=== PATIENT | female | born 1975 | race Caucasian/White ===

== ENCOUNTER 2017-09-14 14:47 | Inpatient (IN) | payer BC, OTHER ==
[~2017-09-14] VITALS: Ht 157.5 cm; Wt 64.6 kg
[~2017-09-14 14:47] MED LIST: ATORVASTATIN CA20 MG PO; IMITREX100 MG PO; ORTHO TRI-CYCL1 EAC1 PO; TOPAMAX50 MG PO
[2017-09-14] MEDS ORDERED: ONDANSETRON HCL INJ 2 MG/ML VIAL IV STA (15:17)
[2017-09-14] MEDS ORDERED: SODIUM CHLORIDE 0.9% 1000ML 1,000 ML IV STA (15:17)
[2017-09-14] MEDS ORDERED: MORPHINE SULFATE 4 MG/ML SYR IV STA (15:17)
[2017-09-14 16:08] LABS: BILIRUBIN,URINE NEGATIVE (NEGATIVE); KETONES,URINE 1+ (NEGATIVE); LEUKOCYTE ESTERASE ,URINE 1+ (NEGATIVE); NITRITE,URINE NEGATIVE (NEGATIVE); PROTEIN,URINE DIPSTICK NEGATIVE (NEGATIVE); URINE UROBILINOGEN 0.2 mg/dL (0.2 - 1)
[2017-09-14 16:12] LABS: CLARITY,URINE SL CLOUDY (CLEAR); COLOR,URINE YELLOW (YELLOW)
--- NOTE | 2017-09-14 16:20 | Diagnostic Imaging Report ---
PROCEDURE: CT ABDOMEN AND PELVIS WITHOUT CONTRAST TECHNIQUE: The abdomen and pelvis were scanned utilizing a multidetector helical scanner from the diaphragm to the lesser trochanter after the oral administration of water. No IV contrast was administered per protocol. Coronal and sagittal multiplanar reformations were obtained. COMPARISON: None. INDICATIONS: right flank pain today, stone protocol FINDINGS: ABSENCE OF INTRAVENOUS CONTRAST DECREASES SENSITIVITY FOR DETECTION OF FOCAL LESIONS AND VASCULAR PATHOLOGY. LOWER THORAX: Unremarkable. HEPATOBILIARY: 6 mm fluid density simple cyst in hepatic segment EFRAÍN (series 3, image 28). No other focal lesions. No biliary ductal dilation. Cholecystectomy clips. SPLEEN: No splenomegaly. PANCREAS: No focal masses or ductal dilatation. ADRENALS: No adrenal nodules. KIDNEYS/URETERS: Right: 6 mm obstructing calculus in the proximal right ureter (series 3, image 79 and coronal image 45), which results in moderate right hydronephrosis, mild proximal hydroureter, and mild perinephric and periureteral stranding. Punctate, nonobstructing calculi in the mid to inferior and inferior aspects (series to 3, images 68 and 72). No renal contour abnormalities. Left: 4-5 mm nonobstructing calculus in the superior pole (series 3 per image 47). 3 mm nonobstructing calculi in the inferior pole (series 3, image 63, 66 and 68). No ureteral calculi, hydronephrosis or obstruction. No perinephric or periureteral stranding. No renal contour abnormalities. PELVIC ORGANS/BLADDER: No bladder calculi or focal lesions. Uterus is not visualized. PERITONEUM / RETROPERITONEUM: No free air or fluid. LYMPH NODES: No lymphadenopathy. VESSELS: Unremarkable. GI TRACT: No distention or wall thickening. BONES AND SOFT TISSUES: No aggressive lytic lesion. Soft tissues are grossly unremarkable. IMPRESSION: 1. 6 mm obstructing calculus in the proximal right ureter, which results in moderate right hydronephrosis, mild proximal hydroureter and mild perinephric and periureteral stranding. 2. Bilateral nonobstructing calculi, as described. No left ureteral calculi, hydronephrosis, or obstruction. Duran Noriega M.D. Dictated by: Duran Noriega M.D. on 09/14/2017 at 16:29 Electronically approved by: Duran Noriega M.D. on 09/14/2017 at 16:29
[2017-09-14 16:22] LABS: EPITHELIAL CELLS,URINE FEW /LPF
[2017-09-14 16:23] LABS: BACTERIA,URINE MODERATE /HPF
[2017-09-14 16:37] LABS: BASOPHILS % 0.2 % (0.0-1.0); HEMATOCRIT 41.8 % (34.2-44.1); HEMOGLOBIN 14.9 g/dL (12.0-16.0); LYMPHOCYTES # (AUTO) 0.7 (1.0-3.2); LYMPHOCYTES % 4.8 % (18.0-39.1); MEAN CORPUSCULAR HEMOGLOBIN 31.2 pg (28-32); MEAN CORPUSCULAR HGB CONC 35.6 g/dL (31-35); MEAN CORPUSCULAR VOLUME 87.4 fL (81-99); MONOCYTES # (AUTO) 0.4 (0.2-0.8); MONOCYTES % 2.7 % (4.4-11.3); NEUTROPHILS # (AUTO) 12.4 (2.1-6.9); NEUTROPHILS % 91.9 % (38.7-80.0); PLATELET COUNT 274 x10e3/uL (140-360); RED BLOOD COUNT 4.78 x10e6/uL (3.6-5.1); RED CELL DISTRIBUTION WIDTH 13.1 % (11.7-14.4)
[2017-09-14 16:54] LABS: ALANINE AMINOTRANSFERASE 22 IU/L (0-55); ALBUMIN 4.5 g/dL (3.5-5.0); ALKALINE PHOSPHATASE 126 IU/L (40-150); ANION GAP 13.7 mmol/L (8-16); BLOOD UREA NITROGEN 11 mg/dL (7-26); BUN/CREATININE RATIO 13 (6-25); CALCIUM 9.2 mg/dL (8.4-10.2); CARBON DIOXIDE 20 mmol/L (22-29); CHLORIDE 105 mmol/L (98-107); CREATININE, SERUM 0.88 mg/dL (0.57-1.11); EST GLOMERULAR FILTRATION RATE > 60 ML/MIN (60-); GLUCOSE 136 mg/dL (74-118); POTASSIUM 3.7 mmol/L (3.5-5.1); SODIUM 135 mmol/L (136-145)
[2017-09-14] MEDS ORDERED: MORPHINE SULFATE 2 MG/ML SYR IV STA (17:09)
[2017-09-14] MEDS ORDERED: CEFTRIAXONE SOD 1 GM VIAL IV ONE (17:20)
[2017-09-14] MEDS: ONDANSETRON HCL INJ 2 MG/ML VIAL IV PRN ×2 (18:34→23:25)
[2017-09-14 21:00] VITALS: BP 124/66
[2017-09-14] MEDS: MORPHINE SULFATE 2 MG/ML SYR IV PRN (23:25)
[2017-09-14] MEDS ORDERED: ACZONE TP (23:29)
[2017-09-14] MEDS ORDERED: ESTRADIOL2 MG PO (23:33)
[2017-09-14] MEDS ORDERED: NATURE S BOUNTY PO (23:37)
[2017-09-15] VITALS (7 sets, daily range): BP systolic 104–143; BP diastolic 55–71
[2017-09-15] MEDS ORDERED: DEXTROSE 5%/0.45% SOD CHL 1,000 ML IV ONE
[2017-09-15] MEDS ORDERED: PHILLIPS' COLO1 EACH PO
[2017-09-15] MEDS ORDERED: TAZORAC30 G2 TOP (00:07)
[2017-09-15] MEDS ORDERED: [UNRECOGNIZED DRUG - OTHER] PO (00:12)
[2017-09-15] MEDS: MORPHINE SULFATE 2 MG/ML SYR IV PRN ×2 (03:38→07:30)
[2017-09-15] MEDS: ONDANSETRON HCL INJ 2 MG/ML VIAL IV PRN ×2 (03:38→07:30)
[2017-09-15] MEDS ORDERED: BELLADONNA/OPIUM 60 MG SUPP PR ONE (09:17)
[2017-09-15] MEDS ORDERED: IOPAMIDOL 610MG/1ML 300 MG/ML VIAL IV ONE (09:17)
--- NOTE | 2017-09-15 11:01 | Consultation ---
DATE OF CONSULTATION: September 15, 2017 UROLOGY CONSULTATION REASON FOR CONSULTATION: Renal colic. HISTORY OF PRESENT ILLNESS: Estrella Sheridan is a 42-year-old woman without ever having a urological evaluation. The patient has severe right-sided flank pain, nausea and vomiting. Reported to the emergency room and was found to have obstructive ureterolithiasis. She was admitted, and urological consultation was sought. The patient denies any hematuria, but has had recurrent urinary tract infections. The patient in January 2017 underwent a large gynecological procedure. At that point in time, cystoscopy and ureteral stent placement were performed by a urogynecologist, Dr. Putnam. The patient has also had involvement of her bladder with endometriosis from the peritoneal side. She reports having stress-type urinary incontinence but denies any urge-type urinary incontinence. She has never had ureterolithiasis before. She has had an IVP performed in the middle of 2016 as part of her preoperative evaluation. PAST MEDICAL AND SURGICAL HISTORY 1. Severe endometriosis, status post total abdominal hysterectomy, bilateral salpingo-oophorectomy and appendectomy with cystoscopy and ureteral stent placement by a urogynecologist. All these procedures were done in January 2017. 2. Hypercholesterolemia. 3. Status post cholecystectomy. 4. 0, para 0. FAMILY HISTORY: Unknown due to the fact that the patient is adopted. SOCIAL HISTORY: The patient denies smoking, ethanol and drug use. The patient is a homemaker. CURRENT MEDICATIONS: Please refer to the MAR. ALLERGIES: CLONAZEPAM. REVIEW OF SYSTEMS: As discussed above in the history of present illness and past medical history, otherwise negative for all systems. PHYSICAL EXAMINATION GENERAL: Healthy-appearing, 42-year-old woman lying in bed in no apparent distress. VITAL SIGNS: She is currently afebrile, and the vital signs are currently stable. ABDOMEN: Soft and nondistended. Tender in the right flank with mild right-sided costovertebral angle tenderness. The kidneys are not palpable without hepatosplenomegaly. No obvious evidence of hernia. For the remaining physical examination systems, please refer to the admission history and physical on the chart, as well as the emergency room sheet. LABORATORY STUDIES: White blood cell count is 13,470, hemoglobin 14.9, platelets 274,000. The patient's sodium is low at 135. The patient's calcium is normal at 9.2. Urinalysis is significant for pyuria and microhematuria as well as bacteriuria. CT scan of the abdomen and pelvis shows bilateral small nephrolithiasis. There are at least 3 stones on the left and at least 2 stones on the right. The patient also has an obstructing 6-mm stone in the right proximal ureter with fairly significant right-sided hydronephrosis. Urine culture is pending. ASSESSMENT 1. Right renal colic. 2. Nausea and vomiting that are better. 3. Urinary tract infections. 4. Stress-type urinary incontinence. 5. Mild hyponatremia. 6. Leukocytosis. 7. Microhematuria. 8. Bilateral nephrolithiasis. 9. Right proximal ureterolithiasis. 10. Right hydronephrosis due to stone. PLAN 1. Due to the fact that the patient may have an infection in addition to her ureterolithiasis, we will plan on performing cystoscopy and placement of stent. I informed the patient of the risks of bleeding, infection, injury to adjacent structures, the fact that she will have a temporary stent and will need followup and removal. I also informed her that she will need at least 1 and probably 2 additional procedures in order to manage her ureterolithiasis and to render her stent-free and stone-free on the right-hand side. 2. I informed the patient that we plan to perform metabolic stone workup and follow up for stone prevention once her surgical stone management procedures are complete. 3. We will work on the patient's urinary frequency and urgency and overactive bladder symptoms that she has had for some time, once we get her stone-free. Thank you very much for involving us in the care of your patient. We will be happy to follow her along with you, as well as an outpatient. Job#: [id number] cc:STEW GATES MD
[2017-09-15] MEDS: PHENAZOPYRIDINE HCL 100 MG TAB PO SCH ×2 (13:12→17:19)
[2017-09-15] MEDS: CEFTRIAXONE SOD 1 GM VIAL IV SCH (13:12)
[2017-09-15] MEDS ORDERED: LIDOCAINE HCL 2% LOCAL INJ 5 ML SDV VIAL INJ ONE (13:49)
[2017-09-15] MEDS ORDERED: ONDANSETRON HCL INJ 2 MG/ML VIAL ONE (13:49)
[2017-09-15] MEDS ORDERED: PROPOFOL IV EMULSION 10 MG/ML 50 ML VIAL ONE (13:49)
[2017-09-15] MEDS ORDERED: DEXAMETHASONE SOD PHOS INJ 4 MG/ML VIAL ONE (13:49)
[2017-09-15] MEDS ORDERED: CEFTRIAXONE SOD 1 GM VIAL ONE (13:49)
[2017-09-15] MEDS ORDERED: SEVOFLURANE INHAL SOLN 250 ML PEN BTL ONE (13:49)
--- NOTE | 2017-09-15 14:49 | Diagnostic Imaging Report ---
PROCEDURE:X-RAY ABDOMEN - KUB COMPARISON:Abdominal CT 09/14/2017. INDICATIONS:STENT PLACEMENT FINDINGS: A right ureteral stent is in place. A 0.6 cm calcification projecting over the right renal silhouette may questionably represent the previous proximal ureteral calculus on the prior CT, although the current location would suggest retrograde movement of the stone. The stent tip appears approximately 0.5 cm medial to the calcification. This unlikely represents one of the additional non-obstructing stones noted on CT based on size. No calcifications are seen along the ureteral stent or bladder. This may also represent calcified enteric contents within a bowel loop. There is a non-obstructed bowel-gas pattern. There are no acute osseous abnormalities. The lung bases are clear. CONCLUSION: Interval placement of a right ureteral stent. Questionable retrograde movement of the previous proximal right ureteral calculus. Dictated by: Antoni Blandon M.D. on 09/15/2017 at 14:58 Electronically approved by: Antoni Blandon M.D. on 09/15/2017 at 14:58
[2017-09-15] MEDS: OXYBUTYNIN CHLORIDE 5 MG TAB PO SCH (17:19)
[2017-09-15] MEDS ORDERED: MIDAZOLAM HCL 2 MG/2 ML VIAL ONE (18:57)
[2017-09-15] MEDS ORDERED: FENTANYL CITRATE/PF 100MCG/2 ML INJ ONE (18:57)
[2017-09-15] MEDS: ACETAMINOPHEN/CODEINE 300MG - 30MG TAB PO PRN ×2 (19:09→23:48)
[2017-09-16] VITALS: BP 117/58
[2017-09-16 04:00] VITALS: BP 104/56
[2017-09-16] MEDS: ACETAMINOPHEN/CODEINE 300MG - 30MG TAB PO PRN (04:12)
[2017-09-16 06:49] LABS: BASOPHILS % 0.3 % (0.0-1.0); EOSINOPHILS % 0.3 % (0.0-6.0); HEMATOCRIT 35.4 % (34.2-44.1); HEMOGLOBIN 12.2 g/dL (12.0-16.0); LYMPHOCYTES # (AUTO) 2.7 (1.0-3.2); LYMPHOCYTES % 23.8 % (18.0-39.1); MEAN CORPUSCULAR HEMOGLOBIN 30.7 pg (28-32); MEAN CORPUSCULAR HGB CONC 34.5 g/dL (31-35); MEAN CORPUSCULAR VOLUME 89.2 fL (81-99); MONOCYTES # (AUTO) 1.5 (0.2-0.8); NEUTROPHILS # (AUTO) 7.2 (2.1-6.9); NEUTROPHILS % 62.3 % (38.7-80.0); PLATELET COUNT 204 x10e3/uL (140-360); RED BLOOD COUNT 3.97 x10e6/uL (3.6-5.1); RED CELL DISTRIBUTION WIDTH 13.3 % (11.7-14.4)
[2017-09-16 07:08] LABS: ANION GAP 11.4 mmol/L (8-16); BLOOD UREA NITROGEN 9 mg/dL (7-26); BUN/CREATININE RATIO 13 (6-25); CALCIUM 8.6 mg/dL (8.4-10.2); CARBON DIOXIDE 25 mmol/L (22-29); CHLORIDE 108 mmol/L (98-107); CREATININE, SERUM 0.71 mg/dL (0.57-1.11); EST GLOMERULAR FILTRATION RATE > 60 ML/MIN (60-); GLUCOSE 91 mg/dL (74-118); POTASSIUM 3.4 mmol/L (3.5-5.1); SODIUM 141 mmol/L (136-145)
[2017-09-16 07:34] VITALS: BP 122/69
[2017-09-16] MEDS ORDERED: PENICILLIN V POTASSIUM 250 MG TAB PO SCH (09:00)
[2017-09-16] MEDS: PHENAZOPYRIDINE HCL 100 MG TAB PO SCH ×3 (09:14→22:00)
[2017-09-16] MEDS: CEFTRIAXONE SOD 1 GM VIAL IV SCH (09:14)
[2017-09-16] MEDS: OXYBUTYNIN CHLORIDE 5 MG TAB PO SCH ×2 (09:14→15:57)
[2017-09-16] MEDS ORDERED: PENICILLIN V POTASSIUM 500 MG TAB PO SCH (09:29)
[2017-09-16] MEDS: PENICILLIN V POTASSIUM 500 MG TAB PO SCH ×3 (09:34→22:00)
[2017-09-16] MEDS ORDERED: POTASSIUM CHLORIDE 20 MEQ TAB CR PO STA (10:11)
[2017-09-16 11:28] VITALS: BP 120/56
[2017-09-16 15:22] VITALS: BP 134/70
[2017-09-16 16:00] VITALS: BP 134/70
[2017-09-17] VITALS: BP 122/70
[2017-09-17 04:00] VITALS: BP 116/80
[2017-09-17] MEDS: PHENAZOPYRIDINE HCL 100 MG TAB PO SCH ×2 (06:30→14:02)
[2017-09-17 07:10] LABS: BASOPHILS # (AUTO) 0.1 (0.0-0.1); BASOPHILS % 0.5 % (0.0-1.0); EOSINOPHILS # (AUTO) 0.1 (0.0-0.4); EOSINOPHILS % 0.8 % (0.0-6.0); HEMATOCRIT 37.3 % (34.2-44.1); HEMOGLOBIN 12.7 g/dL (12.0-16.0); LYMPHOCYTES # (AUTO) 2.2 (1.0-3.2); MEAN CORPUSCULAR HEMOGLOBIN 30.7 pg (28-32); MEAN CORPUSCULAR VOLUME 90.1 fL (81-99); MONOCYTES # (AUTO) 1.2 (0.2-0.8); MONOCYTES % 12.6 % (4.4-11.3); NEUTROPHILS # (AUTO) 5.6 (2.1-6.9); PLATELET COUNT 206 x10e3/uL (140-360); RED BLOOD COUNT 4.14 x10e6/uL (3.6-5.1); RED CELL DISTRIBUTION WIDTH 13.4 % (11.7-14.4)
[2017-09-17 07:29] LABS: ANION GAP 13.8 mmol/L (8-16); BLOOD UREA NITROGEN 9 mg/dL (7-26); BUN/CREATININE RATIO 13 (6-25); CALCIUM 8.7 mg/dL (8.4-10.2); CARBON DIOXIDE 27 mmol/L (22-29); CHLORIDE 105 mmol/L (98-107); CREATININE, SERUM 0.67 mg/dL (0.57-1.11); EST GLOMERULAR FILTRATION RATE > 60 ML/MIN (60-); GLUCOSE 99 mg/dL (74-118); POTASSIUM 3.8 mmol/L (3.5-5.1); SODIUM 142 mmol/L (136-145)
[2017-09-17 08:00] VITALS: BP 127/82
[2017-09-17] MEDS: PENICILLIN V POTASSIUM 500 MG TAB PO SCH ×2 (10:00→14:03)
[2017-09-17] MEDS: OXYBUTYNIN CHLORIDE 5 MG TAB PO SCH (10:00)
[2017-09-17] MEDS: CEFTRIAXONE SOD 1 GM VIAL IV SCH (10:00)
[2017-09-17] MEDS: ACETAMINOPHEN/CODEINE 300MG - 30MG TAB PO PRN (14:02)
[2017-09-17] MEDS ORDERED: TYLENOL WITH C1 EACH PO (14:10)
[2017-09-17] MEDS ORDERED: DITROPAN XL5 MG PO (14:11)
[2017-09-17] MEDS ORDERED: PENICILLIN V K PO (14:12)
--- NOTE | 2017-09-18 12:42 | Discharge Summary ---
DISCHARGE DIAGNOSES 1. Urolithiasis. 2. Status post cystoureteroscopy and stent placement. 3. Urinary tract infection. HOSPITAL COURSE: Ms. Sheridan is a pleasant 42-year-old lady, patient of Dr. Amy Smith, who presented to the emergency department after the sudden onset of right-sided flank pain, nausea, and vomiting. As her pain was not improving, she came to the emergency department and she was found to have a right ureteral stone. Her history is significant for severe endometriosis. She had a total hysterectomy last year, at which time she underwent stenting of ureters due to involvement of the system by endometriosis. The current CT scan showed bilateral small nephrolithiasis. There were least 3 stones on the left, 2 stones on the right, and she had an obstructing 6-mm stone in the right proximal ureter and right-sided hydronephrosis which was significant. Additionally, she has UTI with strep species. She was admitted to the hospital. Consultation was requested with Dr. Simms, urology, who proceeded with taking her to the endoscopy unit, performed a cystoureteroscopy and stent placement. Patient tolerated well and she is being discharged home in stable condition. She is to follow up with Dr. Simms in his office for later removal of the stent and she was given prescriptions for oral antibiotics and pain medication. Job#: [id number] SALMA
== END 2017-09-17 14:29 | disposition home or self-care (01) | DRG 690 ==
LOC: ER 14:47 → ERHOLD 20:11 → IMCU 20:15 → OBSVTOIN 09-16 08:21 → MED/SURG 09-16 23:07
PROVIDERS: ADMIT Internal Medicine; ATTEND Internal Medicine
PROC: 0T768DZ Dilation of Right Ureter with Intraluminal Device, Via Natural or Artificial Opening Endoscopic (ICD-10-PCS; principal; 2017-09-16)
PROC: BT1F1ZZ Fluoroscopy of Left Kidney, Ureter and Bladder using Low Osmolar Contrast (ICD-10-PCS; 2017-09-16)
PROC: BT1D1ZZ Fluoroscopy of Right Kidney, Ureter and Bladder using Low Osmolar Contrast (ICD-10-PCS; 2017-09-16)
DX: N13.6 Pyonephrosis (principal); E87.1 Hypo-osmolality and hyponatremia; N20.1 Calculus of ureter; N39.3 Stress incontinence (female) (male)
CPT/HCPCS: 36415; 74000; 74176; 74420; 80048; 80053; 81001; 83970; 84550; 85025; 87086; 96360; 96374; 99284; G0378; J0696; J1100; J2001; J2250; J2270; J2405; J7030

== ENCOUNTER 2017-09-19 12:42 | Inpatient (IN) | payer OTHER, BC ==
[~2017-09-19] VITALS: Ht 157.5 cm; Wt 66.8 kg
[~2017-09-19 12:42] MED LIST changes: +ACZONE TP; +DITROPAN XL5 MG PO; +ESTRADIOL2 MG PO; +NATURE S BOUNTY PO; +PENICILLIN V K PO; +PHILLIPS' COLO1 EACH PO; +TAZORAC30 G2 TOP; +TYLENOL WITH C1 EACH PO; +[UNRECOGNIZED DRUG - OTHER] PO
--- OUTSIDE RECORDS SUMMARY | 2017-09-19 12:46 | XMS REPORT ---
Author Author [facility] Address Unknown Phone Unavailable Care Team Providers Care Food Service Representative Name Role Phone KARMEN RODRIGUEZ Unavailable Unavailable Problems This patient has no known problems. Allergies, Adverse Reactions, Alerts This patient has no known allergies or adverse reactions. Medications This patient has no known medications. Results Test Description Test Time Test Comments Text Results Atomic Results Result Comments ABDOMEN-1VIEW (KUB) [place] [address] Patient Name: MYLES RAINES MR #: [id number] : 1975 Age/Sex: 42/F Req #: [id number] Adm Physician: KARMEN RODRIGUEZ MD Ordered by: GIGI JUAREZ MD Report #: [id number] Location: [facility] Room/Bed: [place] [address] __ Procedure: [id number] DX/ABDOMEN-1VIEW (KUB) Exam Date: Exam Time: REPORT STATUS: Signed PROCEDURE: X-RAY ABDOMEN - KUB COMPARISON: Abdominal CT 09/14/2017. INDICATIONS: STENT PLACEMENT FINDINGS: A right ureteral stent is in place. A 0.6 cm calcification projecting over the right renal silhouette may questionably represent the previous proximal ureteral calculus on the prior CT, although the current location would suggest retrograde movement of the stone. The stent tip appears approximately 0.5 cm medial to the calcification. This unlikely represents one of the additional non- obstructing stones noted on CT based on size. No calcifications are seen along the ureteral stent or bladder. This may also represent calcified enteric contents within a bowel loop. There is a non-obstructed bowel -gas pattern. There are no acute osseous abnormalities. The lung bases are clear. CONCLUSION: Interval placement of a right ureteral stent. Questionable retrograde movement of the previous proximal right ureteral calculus. Dictated by: Antoni Silver M.D. on 09/15/2017 at 14:58 Electronically approved by: Antoni Silver M.D. on 09/15/2017 at 14:58 Dictated By: ANTONI SILVER MD 57 Transcribed By: LEANNE on 09/15/171457 COPY TO: GIGI JUAREZ MD CT ABDOMEN/PELVIS WO [place] [address] Patient Name: MYLES RAINES MR #: [id number] : 1975 Age/Sex: 42/F Req #: [id number] Adm Physician: Ordered by: ANKUR WELDON COTTON BROKER Report #: [id number] Location: ER Room/Bed: Procedure: [id number] CT/CT ABDOMEN/PELVIS WO Exam Date: 09/14/17 Exam Time: 1535 REPORT STATUS: Signed PROCEDURE: CT ABDOMEN AND PELVIS WITHOUT CONTRAST TECHNIQUE: The abdomen and pelvis were scanned utilizing a multidetector helical scanner from the diaphragm to the lesser trochanter after the oral administration of water. No IV contrast was administered per protocol. Coronal and sagittal multiplanar reformations were obtained. COMPARISON: None. INDICATIONS: right flank pain today, stone protocol FINDINGS: ABSENCE OF INTRAVENOUS CONTRAST DECREASES SENSITIVITY FOR DETECTION OF FOCAL LESIONS AND VASCULAR PATHOLOGY. LOWER THORAX: Unremarkable. HEPATOBILIARY: 6 mm fluid density simple cyst in hepatic segment EFRAÍN (series 3, image 28). No other focal lesions. No biliary ductal dilation. Cholecystectomy clips. SPLEEN: No splenomegaly. PANCREAS: No focal masses or ductal dilatation. ADRENALS: No adrenal nodules. KIDNEYS/URETERS: Right: 6 mm obstructing calculus in the proximal right ureter (series 3, image 79 and coronal image 45), which results in moderate right hydronephrosis, mild proximal hydroureter, and mild perinephric and periureteral stranding. Punctate, nonobstructing calculi in the mid to inferior and inferior aspects (series to 3, images 68 and 72). No renal contour abnormalities. Left: 4-5 mm nonobstructing calculus in the superior pole (series 3 per image 47). 3 mm nonobstructing calculi in the inferior pole (series 3, image 63, 66 and 68). No ureteral calculi, hydronephrosis or obstruction. No perinephric or periureteral stranding. No renal contour abnormalities. PELVIC ORGANS/BLADDER: No bladder calculi or focal lesions. Uterus is not visualized. PERITONEUM / RETROPERITONEUM: No free air or fluid. LYMPH NODES: No lymphadenopathy. VESSELS: Unremarkable. GI TRACT: No distention or wall thickening. BONES AND SOFT TISSUES: No aggressive lytic lesion. Soft tissues are grossly unremarkable. IMPRESSION: 1. 6 mm obstructing calculus in the proximal right ureter, which results in moderate right hydronephrosis, mild proximal hydroureter and mild perinephric and periureteral stranding. 2. Bilateral nonobstructing calculi, as described. No left ureteral calculi, hydronephrosis, or obstruction. Jordan Noriega M.D. Dictated by: Jordan Noriega M.D. on 09/14/2017 at 16:29 Electronically approved by: Jordan Noriega M.D. on 09/14/2017 at 16:29 Dictated By: JORDAN NORIEGA MD Transcribed By: LEANNE on 09/14/17 COPY TO: ANKUR WELDON NP
--- OUTSIDE RECORDS SUMMARY | 2017-09-19 12:46 | XMS REPORT | Continuity of Care Document ---
Author Author [facility] Organization [facility] Address [address] [place] [address] Phone Unavailable Care Team Providers Care Draw Bench Operator Helper Name Role Phone STEW GATES PCP Insurance Providers Guarantor Jeff Raines Address [address] [place] [address] Email N Payer [facility] Policy Number [id number] Subscriber's Name ArvinJeff Relationship 01 Group Number [id number] Effective Date 17 [facility] Policy Number [id number] Subscriber's Name ArvinJeronimoharpreet Relationship 01 Group Number [id number] Group Name [employer]. Effective Date 17 Advance Directives Directive Response Recorded Date/Time Does the patient have an advance directive? Yes 09/14/17 9:30pm If yes, is advance directive on file with [facility]? No 09/14/17 9:30pm If not on file with [facility] will patient provide a copy? Yes 09/14/17 9:30pm Do you have a Directive to Physician? Yes 09/14/17 3:34pm Do you have a Medical Power of Public Relations Representative? Yes 09/14/17 3:34pm Do you have an out of hospital Do Not Resuscitate Order? No 09/14/17 3:34pm Do you have any special needs we should be aware of? No 09/14/17 3:34pm Do you have a support person here with you today? Yes 09/14/17 3:35pm Did patient receive Notice of Privacy Practices? Yes 09/14/17 3:34pm Did patient receive patient rights and responsibilities? Yes 09/14/17 3:34pm Problems Medical Problem Onset Date Status Nephroureterolithiasis Unknown Medications Current Home Medications Medication Dose Units Route Directions Days Qty Instructions Start Date Acetaminophen With Codeine (Tylenol With Codeine #3 Tablet) 1 Each Tablet 300 Mg Oral Every 4 Hours as needed for Pain 50 Tab Aczone 5 % Topical Daily Atorvastatin Calcium 20 Mg Tablet Oral Bedtime Estradiol 2 Mg Tablet Oral Daily L Gasseri/B Bifidum/B Longum (Umii Products Colon Health Capsule) 1 Each Capsule Oral Daily Nature's Bounty D3 2,000 Units Oral Daily Norgestimate-Ethinyl Estradiol (Ortho Tri-Cyclen Lo) 1 Each Tablet Oral Daily Oxybutynin Chloride (Ditropan Xl) 5 Mg Tab.er.24 5 Mg Oral Three Times A Day as needed for Over Active Bladder 270 Tab Penicillin V K 500 Mg Oral Three Times A Day 30 Sumatriptan Succinate (Imitrex) 100 Mg Tablet Oral As Needed Tazarotene (Tazorac) 30 Gm Cream..g. 0.05 % Topically Bedtime apply a pea sized amount at bedtime Topiramate (Topamax) 50 Mg Tablet Oral Twice A Day Topiramate Sprinkle 15 Mg Oral Twice A Day Social History Social History Problem Response Recorded Date/Time Onset Date Status Hx Psychiatric Problems No 09/14/2017 9:30pm Not Applicable Not Applicable Hx Eating Disorder No 09/14/2017 9:30pm Not Applicable Not Applicable Hx Substance Use Disorder No 09/14/2017 9:30pm Not Applicable Not Applicable Hx Depression No 09/14/2017 9:30pm Not Applicable Not Applicable Hx Alcohol Use No 09/14/2017 9:30pm Not Applicable Not Applicable Hx Substance Use Treatment No 09/14/2017 9:30pm Not Applicable Not Applicable Hx Physical Abuse No 09/14/2017 9:30pm Not Applicable Not Applicable Smoking Status Start Date Stop Date Never Smoker Hospital Discharge Instructions No hospital discharge instruction information available. Plan of Care Discharge Date 09/17/17 2:29pm Disposition HOME, SELF-CARE Instructions/Education Provided Back Pain Prescriptions See Medication Section Referrals GIGI JUAREZ MD (Urology) Order Date: 2 Weeks Entered Date: 09/17/2017 2:13pm Address: [facility] [place] [address] Additional Instructions/Education FOLLOW-UP WITH DR JUAREZ'S OFFICE IN FEW WEEKS FOR LITHORIPSY USE OVER THE COUNTER AZO NEEDED STRAIN ALL URINE, IF COLLECT A STONE, PLACE IN CUP SENT HOME WITH YOU AND RETURN TO DR JUAREZ'S OFFICE ACTIVITY TOLERATED DIET TOLERATED FOLLOW UP [facility] PRIMARY CARE PROVIDER IN 2 WEEKS KACY HARRIS Functional Status No functional status information available. Allergies, Adverse Reactions, Alerts Allergen Type Severity Reaction Status Last Updated Clonazepam Allergy Unknown Active 09/15/17 Immunizations No immunization information available. Vital Signs Acute Vital Signs Vital Response Date/Time Temperature (Fahrenheit) 95.8 degrees F (97.6 - 99.5) 09/17/2017 8:00am Pulse Pulse Rate (adult) 67 bpm (60 - 90) 09/17/2017 8:00am Respiratory Rate 22 bpm (12 - 24) 09/17/2017 8:00am Blood Pressure 127/82 mm Hg 09/17/2017 8:00am Height 5 ft 2 in 09/14/2017 3:05pm Weight 142.50 lb 09/16/2017 12:32am Body Mass Index 26.1 kg/m^2 09/17/2017 10:53am Results Laboratory Results Test Name Result Units Flags Reference Collection Date/Time Result Date/ Time Comments White Blood Count 9.11 x10e3/uL 4.8-10.8 09/17/2017 6:58am 09/17/2017 7 :36am Red Blood Count 4.14 x10e6/uL 3.6-5.1 09/17/2017 6:58am 09/17/2017 7: 36am Hemoglobin 12.7 g/dL 12.0-16.0 09/17/2017 6:58am 09/17/2017 7:36am Hematocrit 37.3 % 34.2-44.1 09/17/2017 6:58am 09/17/2017 7:36am Mean Corpuscular Volume 90.1 fL 81-99 09/17/2017 6:58am 09/17/2017 7: 36am Mean Corpuscular Hemoglobin 30.7 pg 28-32 09/17/2017 6:58am 09/17/2017 7:36am Mean Corpuscular Hemoglobin Concent 34.0 g/dL 31-35 09/17/2017 6:58am 09/17/2017 7:36am Red Cell Distribution Width 13.4 % 11.7-14.4 09/17/2017 6:58am 2017 7:36am Platelet Count 206 x10e3/uL 140-360 09/17/2017 6:58am 09/17/2017 7: 36am Neutrophils (%) (Auto) 61.0 % 38.7-80.0 09/17/2017 6:58am 09/17/2017 7: 36am Lymphocytes (%) (Auto) 24.0 % 18.0-39.1 09/17/2017 6:58am 09/17/2017 7: 36am Monocytes (%) (Auto) 12.6 % H 4.4-11.3 09/17/2017 6:58am 09/17/2017 7: 36am Eosinophils (%) (Auto) 0.8 % 0.0-6.0 09/17/2017 6:58am 09/17/2017 7: 36am Basophils (%) (Auto) 0.5 % 0.0-1.0 09/17/2017 6:58am 09/17/2017 7:36am IM GRANULOCYTES % 1.1 % H 0.0-1.0 09/17/2017 6:58am 09/17/2017 7:36am Neutrophils # (Auto) 5.6 2.1-6.9 09/17/2017 6:58am 09/17/2017 7:36am Lymphocytes # (Auto) 2.2 1.0-3.2 09/17/2017 6:58am 09/17/2017 7:36am Monocytes # (Auto) 1.2 H 0.2-0.8 09/17/2017 6:58am 09/17/2017 7:36am Eosinophils # (Auto) 0.1 0.0-0.4 09/17/2017 6:58am 09/17/2017 7:36am Basophils # (Auto) 0.1 0.0-0.1 09/17/2017 6:58am 09/17/2017 7:36am Absolute Immature Granulocyte (auto 0.10 x10e3/uL 0-0.1 09/17/2017 6: 58am 09/17/2017 7:36am Urine Color YELLOW YELLOW 09/14/2017 3:18pm 09/14/2017 4:12pm Urine Clarity SL CLOUDY CLEAR 09/14/2017 3:18pm 09/14/2017 4:12pm Urine Specific [place] 1.010 1.010-1.025 09/14/2017 3:18pm 2017 4:12pm Urine pH 8 H 5 - 7 09/14/2017 3:18pm 09/14/2017 4:12pm Urine Leukocyte Esterase 1+ H NEGATIVE 09/14/2017 3:18pm 09/14/2017 4: 12pm Urine Nitrite NEGATIVE NEGATIVE 09/14/2017 3:18pm 09/14/2017 4:12pm Urine Protein NEGATIVE NEGATIVE 09/14/2017 3:18pm 09/14/2017 4:12pm Urine Glucose (UA) NEGATIVE NEGATIVE 09/14/2017 3:18pm 09/14/2017 4: 12pm Urine Ketones 1+ H NEGATIVE 09/14/2017 3:18pm 09/14/2017 4:12pm Urine Urobilinogen 0.2 mg/dL 0.2 - 1 09/14/2017 3:18pm 09/14/2017 4: 12pm Urine Bilirubin NEGATIVE NEGATIVE 09/14/2017 3:18pm 09/14/2017 4: 12pm Urine Blood 3+ H NEGATIVE 09/14/2017 3:18pm 09/14/2017 4:12pm Urine WBC 6-10 /HPF H 0-5 09/14/2017 3:18pm 09/14/2017 4:23pm Urine RBC 6-10 /HPF H 0-5 09/14/2017 3:18pm 09/14/2017 4:23pm Urine Bacteria MODERATE /HPF H NONE 09/14/2017 3:18pm 09/14/2017 4:23pm Urine Epithelial Cells FEW /LPF NONE 09/14/2017 3:18pm 09/14/2017 4: 23pm Sodium Level 142 mmol/L 136-145 09/17/2017 6:58am 09/17/2017 7:30am Potassium Level 3.8 mmol/L 3.5-5.1 09/17/2017 6:58am 09/17/2017 7:30am Chloride Level 105 mmol/L 98-107 09/17/2017 6:58am 09/17/2017 7:30am Carbon Dioxide Level 27 mmol/L 22-09/17/2017 6:58am 09/17/2017 7: 30am Anion Gap 13.8 mmol/L 8-16 09/17/2017 6:58am 09/17/2017 7:30am Blood Urea Nitrogen 9 mg/dL 709/17/2017 6:58am 09/17/2017 7:30am Creatinine 0.67 mg/dL 0.57-1.11 09/17/2017 6:58am 09/17/2017 7:30am BUN/Creatinine Ratio 13 609/17/2017 6:58am 09/17/2017 7:30am Estimat Glomerular Filtration Rate > 60 ML/MIN 6009/17/2017 6:58am 7:30am Ranges were taken from the National Kidney Disease Education Program and the National Kid[employer] Foundation literature. Reference ranges: 60 or greater: Normal 16-59 (for 3 consecutive months): Chronic kidney disease 15 or less: Kidney failure Glucose Level 99 mg/dL 74-118 09/17/2017 6:58am 09/17/2017 7:30am Calcium Level 8.7 mg/dL 8.4-10.2 09/17/2017 6:58am 09/17/2017 7:30am Uric Acid 2.6 mg/dL 2.6-8.0 09/16/2017 6:25am 09/16/2017 7:08am Total Bilirubin 0.4 mg/dL 0.2-1.2 09/14/2017 4:00pm 09/14/2017 4:55pm Aspartate Amino Transf (AST/SGOT) 21 IU/L 5-34 09/14/2017 4:00pm 2017 4:55pm Alanine Aminotransferase (ALT/SGPT) 22 IU/L 0-55 09/14/2017 4:00pm 4:55pm Total Protein 8.8 g/dL H 6.5-8.1 09/14/2017 4:00pm 09/14/2017 4:55pm Albumin 4.5 g/dL 3.5-5.0 09/14/2017 4:00pm 09/14/2017 4:55pm Globulin 4.3 g/dL H 2.3-3.5 09/14/2017 4:00pm 09/14/2017 4:55pm Albumin/Globulin Ratio 1.0 0.8-2.0 09/14/2017 4:00pm 09/14/2017 4: 55pm Alkaline Phosphatase 126 IU/L 40-150 09/14/2017 4:00pm 09/14/2017 4: 55pm Parathyroid Hormone 26 pg/mL 15-65 09/16/2017 6:28am 09/17/2017 5:45am Calcium (Send out) 8.6 mg/dL L 8.7-10.2 09/16/2017 6:28am 09/17/2017 5: 45am Parathyroid Hormone Interpretation Comment . 09/16/2017 6:28am 2017 5:45am Interpretation Intact PTH Calcium (pg/mL) (mg/dL) Normal 15 - 65 8.6 - 10.2 Primary Hyperparathyroidism >65 >10.2 Secondary Hyperparathyroidism >65 <10.2 Non-Parathyroid Hypercalcemia <65 >10.2 Hypoparathyroidism <15 < 8.6 Non-Parathyroid Hypocalcemia 15 - 65 < 8.6 Performed at: - [facility] [id number] Laboratory Veterinarian: Dereje Harvey MD, Phone: [phone] Performed at: - [facility] [id number] Laboratory Veterinarian: Tex Treviño MD, Phone: [phone] Microbiology Results Procedure Source Organism/Result Collection Date/Time Result Date/Time Result Status Urine Culture Urine,Clean Catch STREPTOCOCCUS VIRIDANS 09/14/2017 3:18pm 09/16/2017 6:47am Final Procedures Procedure Status Date Provider(s) Cystoscopy with retrograde pyelography Completed 09/15/[address] of abdomen and pelvis without contrast Active 09/14/17 ANKUR WELDON [employer] VEHICLE SERVICE ATTENDANT Encounters Encounter Location Arrival/Admit Date Discharge/Depart Date Attending Provider Discharged Inpatient [facility] 09/16/17 8:21am 09/17/17 2:29pm KARMEN RODRIGUEZ MD
[2017-09-19] MEDS ORDERED: SODIUM CHLORIDE 0.9% 1000ML 1,000 ML IV STA (12:47)
[2017-09-19] MEDS ORDERED: ONDANSETRON HCL INJ 2 MG/ML VIAL IV STA (12:47)
[2017-09-19] MEDS ORDERED: MORPHINE SULFATE 4 MG/ML SYR IV STA (12:47)
[2017-09-19] MEDS ORDERED: MORPHINE SULFATE 2 MG/ML SYR ONE (13:18)
[2017-09-19 13:37] LABS: BASOPHILS # (AUTO) 0.1 (0.0-0.1); BASOPHILS % 0.8 % (0.0-1.0); EOSINOPHILS # (AUTO) 0.2 (0.0-0.4); EOSINOPHILS % 2.3 % (0.0-6.0); HEMATOCRIT 38.2 % (34.2-44.1); HEMOGLOBIN 13.3 g/dL (12.0-16.0); MEAN CORPUSCULAR HEMOGLOBIN 30.9 pg (28-32); MEAN CORPUSCULAR HGB CONC 34.8 g/dL (31-35); MEAN CORPUSCULAR VOLUME 88.8 fL (81-99); MONOCYTES # (AUTO) 0.9 (0.2-0.8); MONOCYTES % 12.3 % (4.4-11.3); NEUTROPHILS # (AUTO) 4.2 (2.1-6.9); NEUTROPHILS % 57.3 % (38.7-80.0); PLATELET COUNT 236 x10e3/uL (140-360)
[2017-09-19 13:51] LABS: ALANINE AMINOTRANSFERASE 12 IU/L (0-55); ALBUMIN 3.6 g/dL (3.5-5.0); ALKALINE PHOSPHATASE 93 IU/L (40-150); ANION GAP 13.3 mmol/L (8-16); BLOOD UREA NITROGEN 9 mg/dL (7-26); BUN/CREATININE RATIO 13 (6-25); CALCIUM 8.8 mg/dL (8.4-10.2); CARBON DIOXIDE 25 mmol/L (22-29); CHLORIDE 102 mmol/L (98-107); CREATININE, SERUM 0.71 mg/dL (0.57-1.11); EST GLOMERULAR FILTRATION RATE > 60 ML/MIN (60-); GLUCOSE 151 mg/dL (74-118); POTASSIUM 3.3 mmol/L (3.5-5.1); SODIUM 137 mmol/L (136-145)
--- NOTE | 2017-09-19 14:02 | Diagnostic Imaging Report ---
EXAM: Abdomen, one view INDICATION: Pain. COMPARISON: Abdomen, one view, 09/15/2017. CT abdomen and pelvis 09/14/2017 FINDINGS: LINES: None. Bowel: No air fluid levels.. No pneumoperitoneum.. Moderate amount of retained feces and air are noted in the colon and rectum. Right ureteral stent is present. 5.1 mm calculus projects over the proximal right ureter, between the right transverse processes of L2 and L3. 3.1 mm calculus projects over the left kidney. No calcifications project over the right renal shadow, expected course of the left ureter, and bladder. Soft tissues: Cholecystectomy clips. Bones: No acute osseous abnormality. Impression: Left nephrolithiasis. Proximal right ureteral calculus. Right ureteral stent. Signed by: Dr. Eliceo Latham M.D. on 09/19/2017 1:59 PM
[2017-09-19 14:29] LABS: BILIRUBIN,URINE 1+ (NEGATIVE); CLARITY,URINE CLEAR (CLEAR); COLOR,URINE YELLOW (YELLOW); KETONES,URINE NEGATIVE (NEGATIVE); LEUKOCYTE ESTERASE ,URINE 1+ (NEGATIVE); URINE UROBILINOGEN 1 mg/dL (0.2 - 1)
[2017-09-19 14:34] LABS: NITRITE,URINE POSITIVE (NEGATIVE); PROTEIN,URINE DIPSTICK TRACE (NEGATIVE)
[2017-09-19 14:43] LABS: EPITHELIAL CELLS,URINE FEW /LPF; RBC,URINE 21-50 /HPF (0-5); WBC,URINE (MAN) 0-5 /HPF (0-5)
[2017-09-19] MEDS ORDERED: ONDANSETRON HCL INJ 2 MG/ML VIAL IV PRN (15:00)
[2017-09-19] MEDS ORDERED: LEVOFLOXACIN 500MG/D5W 100ML IV SCH (15:00)
[2017-09-19] MEDS ORDERED: LEVOFLOXACIN 500MG/D5W 100ML 100 ML IV SCH (16:00)
[2017-09-19] MEDS: SODIUM CHLORIDE 0.9% 1000ML 1,000 ML IV SCH (16:26)
[2017-09-19 16:35] VITALS: BP 139/69
[2017-09-19 17:23] VITALS: BP 139/69
[2017-09-19 20:00] VITALS: BP 102/57
[2017-09-19] MEDS: HYDROMORPHONE 2MG/ML INJ IV PRN (21:08)
[2017-09-20] VITALS (8 sets, daily range): BP systolic 102–117; BP diastolic 53–80
[2017-09-20] MEDS: SODIUM CHLORIDE 0.9% 1000ML 1,000 ML IV SCH ×4 (00:04→23:53)
[2017-09-20 07:08] LABS: BASOPHILS # (AUTO) 0.1 (0.0-0.1); BASOPHILS % 0.7 % (0.0-1.0); EOSINOPHILS # (AUTO) 0.3 (0.0-0.4); EOSINOPHILS % 3.9 % (0.0-6.0); HEMATOCRIT 34.4 % (34.2-44.1); HEMOGLOBIN 11.8 g/dL (12.0-16.0); LYMPHOCYTES # (AUTO) 2.6 (1.0-3.2); LYMPHOCYTES % 35.4 % (18.0-39.1); MEAN CORPUSCULAR HEMOGLOBIN 31.5 pg (28-32); MEAN CORPUSCULAR HGB CONC 34.3 g/dL (31-35); MEAN CORPUSCULAR VOLUME 91.7 fL (81-99); MONOCYTES # (AUTO) 1.1 (0.2-0.8); MONOCYTES % 14.8 % (4.4-11.3); NEUTROPHILS # (AUTO) 3.3 (2.1-6.9); NEUTROPHILS % 45.1 % (38.7-80.0); PLATELET COUNT 191 x10e3/uL (140-360); RED BLOOD COUNT 3.75 x10e6/uL (3.6-5.1)
[2017-09-20 07:38] LABS: ANION GAP 10.9 mmol/L (8-16); BLOOD UREA NITROGEN 7 mg/dL (7-26); BUN/CREATININE RATIO 12 (6-25); CALCIUM 8.2 mg/dL (8.4-10.2); CARBON DIOXIDE 26 mmol/L (22-29); CHLORIDE 106 mmol/L (98-107); CREATININE, SERUM 0.57 mg/dL (0.57-1.11); EST GLOMERULAR FILTRATION RATE > 60 ML/MIN (60-); GLUCOSE 95 mg/dL (74-118); POTASSIUM 3.9 mmol/L (3.5-5.1); SODIUM 139 mmol/L (136-145)
[2017-09-20 08:53] LABS: BILIRUBIN,URINE NEGATIVE (NEGATIVE); KETONES,URINE NEGATIVE (NEGATIVE); LEUKOCYTE ESTERASE ,URINE 2+ (NEGATIVE); NITRITE,URINE NEGATIVE (NEGATIVE); URINE UROBILINOGEN 0.2 mg/dL (0.2 - 1)
[2017-09-20 09:01] LABS: CLARITY,URINE SL CLOUDY (CLEAR); COLOR,URINE AMBER (YELLOW); PROTEIN,URINE DIPSTICK 1+ (NEGATIVE)
[2017-09-20 09:26] LABS: BACTERIA,URINE FEW /HPF; EPITHELIAL CELLS,URINE FEW /LPF; RBC,URINE >50 /HPF (0-5)
[2017-09-20] MEDS: CEFTRIAXONE SOD 1 GM VIAL IV SCH (11:54)
[2017-09-20] MEDS: HYDROMORPHONE 2MG/ML INJ IV PRN ×2 (12:18→18:05)
[2017-09-20] MEDS: FLUCONAZOLE 100 MG TAB PO SCH (15:47)
[2017-09-20] MEDS ORDERED: MAGNESIUM HYDROXIDE 30 ML UDC PO ONE (16:30)
[2017-09-20] MEDS: AMPICILLIN SOD 1 GM/NS 50ML 50 ML IV SCH (23:53)
[2017-09-21] VITALS (8 sets, daily range): BP systolic 102–123; BP diastolic 58–82
[2017-09-21] MEDS: AMPICILLIN SOD 1 GM/NS 50ML 50 ML IV SCH ×3 (06:00→21:55)
--- NOTE | 2017-09-21 08:05 | Diagnostic Imaging Report ---
PROCEDURE:X-RAY ABDOMEN - KUB COMPARISON:Abdomen one view 09/19/2017. INDICATIONS:RIGHT FLANK PAIN. RENAL STONE FINDINGS: There is a non-obstructed bowel-gas pattern. Calculus in the proximal right ureter. Right ureteral stent. There are no calcifications projected over the left renal shadow, expected course of the left ureter or bladder. Cholecystectomy clips. There are no acute osseous abnormalities. The lung bases are clear. CONCLUSION: Proximal right ureteral calculus. Right ureteral stent. Dictated by: Eliceo Latham M.D. on 09/21/2017 at 8:15 Electronically approved by: Eliceo Latham M.D. on 09/21/2017 at 8:15
[2017-09-21] MEDS: FLUCONAZOLE 100 MG TAB PO SCH (08:23)
[2017-09-21] MEDS ORDERED: POLYETHYLENE GLYCOL 3350 17 GM PACK PO SCH (09:00)
[2017-09-21] MEDS: CEFTRIAXONE SOD 1 GM VIAL IV SCH (11:49)
[2017-09-21] MEDS: SODIUM CHLORIDE 0.9% 1000ML 1,000 ML IV SCH (14:25)
[2017-09-21] MEDS: HYDROMORPHONE 2MG/ML INJ IV PRN (15:54)
[2017-09-21] MEDS: DOCUSATE SODIUM 100 MG CAP PO SCH (17:46)
[2017-09-22] VITALS (7 sets, daily range): BP systolic 97–124; BP diastolic 54–77
[2017-09-22] MEDS: SODIUM CHLORIDE 0.9% 1000ML 1,000 ML IV SCH ×3 (02:34→20:12)
[2017-09-22] MEDS: AMPICILLIN SOD 1 GM/NS 50ML 50 ML IV SCH ×3 (06:10→22:00)
[2017-09-22] MEDS ORDERED: BELLADONNA/OPIUM 60 MG SUPP PR ONE (06:45)
[2017-09-22] MEDS ORDERED: IOPAMIDOL 610MG/1ML 300 MG/ML VIAL IV ONE (06:45)
[2017-09-22] MEDS: DOCUSATE SODIUM 100 MG CAP PO SCH ×2 (12:21→16:51)
[2017-09-22] MEDS: FLUCONAZOLE 100 MG TAB PO SCH (12:21)
[2017-09-22] MEDS: PHENAZOPYRIDINE HCL 100 MG TAB PO SCH ×2 (12:22→16:51)
[2017-09-22] MEDS: CEFTRIAXONE SOD 1 GM VIAL IV SCH (12:27)
[2017-09-22] MEDS: ACETAMINOPHEN/CODEINE 300MG - 30MG TAB PO PRN ×3 (12:43→21:57)
[2017-09-22] MEDS ORDERED: DEXAMETHASONE SOD PHOS INJ 4 MG/ML VIAL ONE (17:38)
[2017-09-22] MEDS ORDERED: SEVOFLURANE INHAL SOLN 250 ML PEN BTL ONE (17:38)
[2017-09-22] MEDS ORDERED: PROPOFOL IV EMULSION 10 MG/ML 20 ML VIAL ONE (17:38)
[2017-09-22] MEDS ORDERED: ONDANSETRON HCL INJ 2 MG/ML VIAL ONE (17:38)
[2017-09-22] MEDS ORDERED: LIDOCAINE HCL 2% LOCAL INJ 5 ML SDV VIAL INJ ONE (17:38)
[2017-09-22] MEDS ORDERED: EPHEDRINE SULFATE INJ 50 MG/10 ML SYR ONE (17:38)
[2017-09-22] MEDS ORDERED: FENTANYL CITRATE/PF 100MCG/2 ML INJ ONE (17:45)
[2017-09-22] MEDS ORDERED: MIDAZOLAM HCL 2 MG/2 ML VIAL ONE (17:45)
[2017-09-22] MEDS: HYDROMORPHONE 2MG/ML INJ IV PRN (21:33)
[2017-09-23] VITALS: BP 123/68
[2017-09-23] MEDS: ACETAMINOPHEN/CODEINE 300MG - 30MG TAB PO PRN (03:00)
[2017-09-23 04:00] VITALS: BP 101/59
[2017-09-23] MEDS: AMPICILLIN SOD 1 GM/NS 50ML 50 ML IV SCH (06:11)
[2017-09-23 08:00] VITALS: BP 106/59
[2017-09-23] MEDS: PHENAZOPYRIDINE HCL 100 MG TAB PO SCH (10:30)
[2017-09-23] MEDS: DOCUSATE SODIUM 100 MG CAP PO SCH (10:30)
[2017-09-23] MEDS: FLUCONAZOLE 100 MG TAB PO SCH (10:30)
[2017-09-23 12:00] VITALS: BP_SYST 130; BP_SYST 134; BP_DIAS 65; BP_DIAS 84
[2017-09-23] MEDS ORDERED: DIFLUCAN100 MG PO (12:28)
--- NOTE | 2017-09-23 13:06 | Discharge Summary ---
DISCHARGE DIAGNOSES 1. Status post urological procedure. 2. Urolithiasis. 3. Urinary tract infection. HISTORY AND HOSPITAL COURSE: Ms. Sheridan is a 42-year-old lady who had been discharged home on September 17, 2017 after a urological procedure with stent placement for a right ureteral stone. She returned with complaints of ongoing right flank pain and nausea. There was no fever and no vomiting. After admission, she was continued on the prior IV antibiotics. A consult was requested with Dr. Simms, who scheduled a second urological procedure, which was performed yesterday morning without any complications. This morning, she is feeling better and she has been cleared for discharge by Dr. Simms. She is to get a prescription for Diflucan and to follow up with Dr. Simms's office. KARMEN RODRIGUEZ MD Job#: [id number] PAT
== END 2017-09-23 13:53 | disposition home or self-care (01) | DRG 669 ==
LOC: ER 12:42 → ERHOLD 15:51 → MED/SURG 15:53
PROVIDERS: ADMIT Internal Medicine; ATTEND Internal Medicine
PROC: 0TC78ZZ Extirpation of Matter from Left Ureter, Via Natural or Artificial Opening Endoscopic (ICD-10-PCS; 2017-09-22)
PROC: BT1F1ZZ Fluoroscopy of Left Kidney, Ureter and Bladder using Low Osmolar Contrast (ICD-10-PCS; 2017-09-22)
PROC: BT1D1ZZ Fluoroscopy of Right Kidney, Ureter and Bladder using Low Osmolar Contrast (ICD-10-PCS; 2017-09-22)
PROC: 0T768DZ Dilation of Right Ureter with Intraluminal Device, Via Natural or Artificial Opening Endoscopic (ICD-10-PCS; principal; 2017-09-22 09:30)
DX: N13.6 Pyonephrosis (principal); N20.1 Calculus of ureter; K59.00 Constipation, unspecified
CPT/HCPCS: 36415; 74018; 74420; 80048; 80053; 81001; 85025; 87040; 87086; 88300; 99284; J0290; J0696; J1100; J1956; J2001; J2250; J2270; J2405; J7030

== ENCOUNTER → 2017-10-28 | Outpatient (CLI) | payer OTHER ==
[~2017-10-28] MED LIST changes: +DIFLUCAN100 MG PO
--- NOTE | 2017-10-28 14:58 | Diagnostic Imaging Report ---
PROCEDURE:ABDOMEN-1VIEW (KUB) TECHNIQUE:Supine AP abdomen INDICATION:Kidney stones COMPARISON:Patients [facility], DX, ABDOMEN-1VIEW (KUB), 09/21/2017, 6:49. Patients [facility], DX, RETROGRADE PYELOGRAM, 09/22/2017, 9:03. FINDINGS: See conclusion. CONCLUSION: 1. No conspicuous calcifications over the right kidney. 2. 3 mm calcification over the left inferior pole. Calcifications the medial left of T12 is likely vascular. 3. Normal bowel gas pattern. No evidence of organomegaly or ascites. 4. Normal skeleton. Dictated by: Gene Treviño M.D. on 10/28/2017 at 14:57 Electronically approved by: Gene Treviño M.D. on 10/28/2017 at 14:57
== END ==
LOC: RAD 13:49
PROVIDERS: ATTEND Urology
DX: N20.0 Calculus of kidney (principal)
CPT/HCPCS: 74018